=== PATIENT | female | born 1985 | race African-American/Black ===

== ENCOUNTER 2024-07-24 22:44 | Emergency (ER) | payer MEDICAID ==
[~2024-07-24] VITALS: Ht 149.9 cm; Wt 64.0 kg
[2024-07-24 22:49] VITALS: O2SAT 99
[2024-07-24 23:35] VITALS: BP 131/77; PULSE 80; RESP 20; TEMP 36.89184; O2SAT 99
== END 2024-07-24 23:40 | disposition home or self-care (01) ==
LOC: EDSEX 22:44 → ER 22:44
DX: R51.9 Headache, unspecified (principal); J45.909 Unspecified asthma, uncomplicated
CPT/HCPCS: 99281